=== PATIENT | male | born 1940 | race Caucasian/White ===

== ENCOUNTER 2018-11-14 12:28 | Inpatient (IN) | payer OTHER ==
[~2018-11-14] VITALS: Ht 172.7 cm; Wt 116.4 kg
--- NOTE | ~2018-11-14 | WRIGHTHP ---
[place], [place] PATIENT HISTORY AND PHYSICAL EXAM [id number] UNIT #: [id number] ROOM: DOCTOR: KENNA SUH MD BIRTHDATE: [birth year] DOS: CHIEF COMPLAINT: Syncope. HISTORY OF PRESENT ILLNESS: A 78-year-old patient presented to the office after he passed out at home in the kitchen. The patient completely passed out for a few seconds. It happened last night and the patient did not go to ER. He came to our office and in the office. EKG was done, which showed A-Fib with controlled rate. Orthostatics were mildly positive. He was recently started on lisinopril. His blood pressure dropped only 8 mmHg. At this time. Lisinopril is being continued. Also, he had supratherapeutic INR. He was on total Coumadin of 91 mg in a week, but it was decreased to 70 mg per week. I increased it to 80 mg per week. He will take Coumadin 10 mg daily except , on he will take 20 mg. The patient is denying any chest pain or shortness of breath at this time. The patient at this time will be admitted to the hospital. PAST MEDICAL HISTORY: 1. Atrial fibrillation for 3 years. 2. Essential hypertension. 3. Type 2 diabetes without long-term complications. 4. B12 deficiency. 5. Hyperlipidemia. 6. Depression. 7. History of asbestosis (as per ). PAST SURGICAL HISTORY: Bronchoscopy in the past. FAMILY HISTORY: Father and mother both . One son and two daughters, they are healthy. Dad had Alzheimer's disease. Otherwise, family history at this stage is noncontributory. SOCIAL HISTORY: He is a nonsmoker and nonalcoholic. No illicit drug use. CURRENT MEDICATIONS: 1. Vitamin B12 3000 mcg tablet daily. 2. Hydrochlorothiazide 25 mg daily. 3. Cartia XT 240 mg daily. 4. Metformin 1000 mg b.i.d. 5. Pioglitazone 30 mg daily. 6. Atorvastatin 80 mg daily. 7. Zoloft 100 mg daily. 8. Lisinopril 10 mg daily. 9. Coumadin 10 mg daily except , on he takes 2 pills. DRUG ALLERGIES: No known drug allergies. REVIEW OF SYSTEMS: A 10-point review of systems is unremarkable except for as in the history of presenting illness. [place], [place] PATIENT HISTORY AND PHYSICAL EXAM NAME: KIMBERLY DEE UNIT #: [id number] ROOM: DOCTOR: KENNA SUH MD BIRTHDATE: [birth year] PHYSICAL EXAMINATION: VITAL SIGNS: His temperature is 97.8, heart rate 71, blood pressure is 130/72. His BMI is 39, oxygen saturation 96%. HEAD: Normocephalic, atraumatic. EYES: Pupils equal, round, react to light. Extraocular movements are intact. EAR, NOSE AND THROAT: No discharge noted. NECK: No JVD. No lymphadenopathy. No thyromegaly. CHEST: Clinically clear to auscultation bilaterally. HEART: Irregularly irregular. LUNGS: Clear to auscultation bilaterally. ABDOMEN: Soft, nontender. Bowel sounds are present. EXTREMITIES: The patient does have 1-2+ pedal edema noted. NEUROLOGIC: No focal deficit noted at this point. LABORATORY DATA: His INR was 1.6. ASSESSMENT: At this time: 1. Syncope and collapse. We will check CMP, CBC with diff, vitamin B12 and folic acid, TSH, and free T4. Then, we will get CAT scan of the head without contrast, then carotid duplex, then echocardiogram. 2. Atrial fibrillation. INR is subtherapeutic at 1.6. Extra Coumadin dose given today. EKG also showed atrial fibrillation with controlled rate. 3. Subtherapeutic INR. 4. Essential hypertension. Blood pressure is well controlled. 5. Type 2 diabetes without any complications. 6. Pure hyperlipidemia. 7. Hypercholesterolemia. 8. Depression. 9. History of asbestosis. 10. Mild orthostatic hypotension. PLAN OF CARE: 1. Continue all home meds. 2. Lab tests as dictated above. 3. Dr. Daugherty will be covering over the weekend starting tomorrow. Dr. Daugherty will follow the patient in the morning. [place], [place] PATIENT HISTORY AND PHYSICAL EXAM NAME: KIMBERLY DEE UNIT #: [id number] ROOM: DOCTOR: KENNA SUH MD BIRTHDATE: [birth year] KENNA SUH MD CM:HISPHYS:PATIENT HISTORY AND PHYSICAL EXAMINATION 1221 1301 KENNA SUH MD 11/14/18 1302 interface
--- NOTE | ~2018-11-14 | EKG ---
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
--- NOTE | ~2018-11-14 | PR ---
[place], [place] PROGRESS NOTE NAME: KIMBERLY DEE UNIT #: [id number] ROOM: 522 DOCTOR: GURINDER HONG,SOHA BIRTHDATE: [birth year] DOS: 11/16/2018 CARDIOLOGY PROGRESS NOTE REASON FOR VISIT: The patient with syncope and atrial fibrillation and bradyarrhythmia. HISTORY OF PRESENT ILLNESS: The patient is feeling better. Denies any dizziness. He is ambulating. Denies any palpitation. No chest pain or shortness of breath. No PND, no orthopnea. No nausea, vomiting, diarrhea. No dizziness. REVIEW OF SYSTEMS: Review of the 8 systems negative except as mentioned above. PHYSICAL EXAMINATION: VITAL SIGNS: Blood pressure 112/70, pulse 60, respiratory rate 18, weight 116.7 kg, BMI 39. RHYTHM STRIPS: The patient in atrial fibrillation with occasional rates into high 40s and low 50s. GENERAL: Alert, comfortable, in no acute distress. HEAD AND NECK: Supple. No distended neck veins, no carotid bruit. CHEST: Symmetrical, nontender. LUNGS: Clear to auscultation bilaterally. HEART: Irregularly irregular, grade 1/6 systolic murmur. ABDOMEN: Obese, nontender. Bowel sounds normal. EXTREMITIES: Showed no edema. Distal pulses palpable. SKIN: Warm and dry. No cyanosis, no clubbing. RECTAL: Deferred. GENITOURINARY: Deferred. NEUROLOGIC: The patient is alert with no focal neurologic deficit. MEDICATIONS AND LABORATORY DATA: Reveal a hemoglobin 13.2. Chemistry unremarkable. INR 1.8. IMPRESSION: 1. Syncope, possible hypotension versus bradycardia, no recurrence. 2. Chronic atrial fibrillation with occasional slow ventricular rate. 3. Hypertension. 4. Diabetes type 2. 5. Non-morbid obesity. 6. Right bundle branch block and left anterior fascicular block. RECOMMENDATIONS: The patient's blood pressures are borderline and heart rates also occasional bradycardia. I would discontinue his Cardizem and monitor his heart rate, blood pressures. Keep INR between 2-3. The patient can be discharged home and he will get outpatient Holter monitor next week and then follow up with [facility] and if the patient noted to [place], [place] PROGRESS NOTE NAME: KIMBERLY DEE UNIT #: [id number] ROOM: 522 DOCTOR: GURINDER HONG,SOHA BIRTHDATE: [birth year] have significant bradycardia and symptomatic with heart rate less than 40, then he will need a permanent pacemaker. Above recommendations discussed with the patient and all questions were answered. There is no family at bedside at the time of my examination. SOHA FAIRCHILD MD CM:PNTRANS [id number] SOHA FAIRCHILD MD 11/16/18 2354 interface
--- NOTE | ~2018-11-14 | DS ---
[place], [place] DISCHARGE SUMMARY NAME: KIMBERLY DEE [facility] #: [id number] UNIT #: [id number] ROOM: 522 DOCTOR: ROMA SIMONS MD BIRTHDATE: [birth year] DOS: A 78-year-old who was admitted to hospital as he has passing out attack, possibly due to his postural hypotension and the patient is feeling completely normal now. He is able to ambulate well without any problem and no dizziness, no chest pain, no difficulty breathing, no nausea, no vomiting, no blood in his stool. No urinary complaint. He feels perfectly alright. FINAL DIAGNOSES: Syncopal attack with collapse, atrial fibrillation, essential hypertension, postural hypotension, type 2 diabetes mellitus without complication, hyperlipidemia, hypercholesterolemia and depression, history of asbestosis, mild. The patient's CBC showed on admission, white count 9100, hemoglobin 13.2, hematocrit 39.8. Other values are fairly good. Protime was 16.4. Comprehensive metabolic profile showed glucose 119, magnesium 2.2. Other values are normal. Troponin level was normal. Chest x-ray showed minimal left lobe discoid atelectasis versus infiltrate. CT of the chest showed no acute intracranial process identified at the time of this examination in the absence of the ____, MRI maybe helpful. Repeat troponin level 2 times was normal. MRI of the brain was done, which showed chronic ischemic white matter changes without acute intracranial abnormality. Echocardiogram showed the left ventricle normal in size. There is normal left ventricular systolic wall motion, mild concentric left ventricular hypertrophy. The ejection fraction of 60-65%, right ventricle was normal. Atria were normal, aortic wall was normal. No regurgitation. Mitral valve was normal. Tricuspid valve was trace of tricuspid regurgitation. Pulmonic was normal. Great vessels were normal with no pericardial effusion. Ultrasound of the carotid arteries showed less than 50% stenosis in bilateral internal carotid arteries. Protime on the day of discharge 18.2, INR is 17., PHYSICAL EXAMINATION: VITAL SIGNS: Blood pressure is 133/69, pulse 60, respirations 20, temperature 98.6. CHEST: Clear. HEART: Regular. ABDOMEN: Soft. No postural hypotension. The patient will be discharged and all his home medication except the Cardizem, which causes him postural hypotension. The patient is also advised to lose some weight and stay physically active. I will see him in the office next week. [place], [place] DISCHARGE SUMMARY NAME: KIMBERLY DEE UNIT #: [id number] ROOM: 522 DOCTOR: ROMA SIMONS MD BIRTHDATE: [birth year] ROMA SIMONS MD CM:DISCHARG 4 [id number] ROMA SIMONS MD 11/17/18 2205 interface
--- NOTE | ~2018-11-14 | PR ---
[place], [place] PROGRESS NOTE NAME: KIMBERLY DEE [facility] #: [id number] UNIT #: [id number] ROOM: 522 DOCTOR: ROMA SIMONS MD BIRTHDATE: [birth year] DOS: 11/16/2018 SUBJECTIVE: The patient has been admitted to the hospital with history of passing out at his home. It was only for a short time and after that the patient got up. He denies any chest pain. No difficulty breathing, no nausea, no vomiting. He is lying comfortably in the bed without any problem and can move all the 4 limbs without any problem. Conscious, alert, and oriented. The patient has history of atrial fibrillation in the past and has hypertension, type 2 diabetes, B12 deficiency, hyperlipidemia, depression, history of asbestosis. OBJECTIVE: GENERAL: On examination, the patient is conscious, alert and oriented. VITAL SIGNS: Blood pressure is 141/64, pulse 61, respirations 20, temperature 97.6. HEART: Seems to be regular. LUNGS: Clear. ABDOMEN: Soft. NEUROLOGIC: No neurological deficit observed. LABORATORY DATA: CBC showed white count 8600, hemoglobin 12.8, hematocrit 38.7. Comprehensive metabolic profile showed glucose of 133, calcium 8.4, alkaline phosphatase of 44. All other values are normal. Thyroid profile is normal. Protime is 17.2. Vitamin B12 is greater than 2000. Urine culture showed heavy growth of gram-negative bacteria. MRI of the head shows chronic ischemic white matter changes without acute intracranial abnormality. EKG shows atrial fibrillation with slow ventricular rate. Ultrasound of the carotid artery shows less than 50% stenosis of bilateral internal carotid arteries. Echocardiogram, left ventricle is normal in size. There is normal left ventricular segmental wall motion, mild concentric left ventricular hypertrophy, left ventricular systolic function is normal. Ejection fraction is 65%. Right ventricle is of normal size. Left atria are normal. Aortic valve is essentially normal. Mitral valve, there is no mitral valve regurgitation. Tricuspid valve is with trace tricuspid regurgitation. Pulmonary valve normal. Great vessel normal. No pericardial effusion. Basic metabolic profile today showed glucose 129, other values are normal. The patient is conscious, alert and oriented and without any problem. PLAN OF TREATMENT: We will continue with the present medical treatment. The patient is encouraged to actively ambulate and see how he is doing. The patient is already taking antibiotic for possible urinary tract infection. [place], [place] PROGRESS NOTE NAME: KIMBERLY DEE UNIT #: [id number] ROOM: 522 DOCTOR: ROMA SIMONS MD BIRTHDATE: [birth year] ROMA SIMONS MD CM:PNTRANS [id number] ROMA SIMONS MD 11/16/18 1417 interface
--- NOTE | ~2018-11-14 | CON ---
[place], [place] REPORT OF CONSULTATION [id number] UN[facility] #: [id number] ROOM: 522 DOCTOR: SOHA FAIRCHILD MD BIRTHDATE: [birth year] DOS: 11/15/2018 CARDIOLOGY CONSULTATION REASON FOR CONSULTATION: The patient has syncope and some bradyarrhythmia with atrial fibrillation. HISTORY OF PRESENT ILLNESS: The patient is a 78-year-old with history of paroxysmal atrial fibrillation, hypertension, diabetes, and morbid obesity, was admitted for syncope. Apparently at home in the late evening, the patient went to the kitchen and did some chores and then later on he "passed out" for about a minute. There was no head injury, but he denied any chest pain, shortness of breath, diaphoresis or dizziness prior to this episode. This is the first time he had, but he did not seek any medical attention. Next day, he went to Dr. Cadena's office and he was admitted to the hospital for further evaluation. The patient was slightly orthostatic in the office. He was on Coumadin for his atrial fibrillation, but denies any chest pain or shortness of breath, no palpitations. No dizziness, no nausea or vomiting. No fever and chills. No cough, no hemoptysis. No bladder or bowel symptoms, no genitourinary symptoms. The patient did complain of some fatigue for the past few weeks. REVIEW OF SYSTEMS: Review of 10-systems negative except as described above. The patient's only complaint is some fatigue and tiredness for a few weeks. PAST MEDICAL HISTORY: 1. Paroxysmal atrial fibrillation. 2. Hypertension. 3. Diabetes type 2. 4. Dyslipidemia. 5. Morbid obesity. 6. History of asbestosis. PAST SURGICAL HISTORY: The patient has history of a bronchoscopy. FAMILY HISTORY: Father and mother both . Dad had dementia. SOCIAL HISTORY: The patient does not smoke, does not drink, does not use illicit drugs. ALLERGIES: Reviewed. HOME MEDICATIONS: Reviewed. PHYSICAL EXAMINATION: VITAL SIGNS: Blood pressure 142/78, pulse 61, respiratory rate 20, weight 116 kg, BMI 39. GENERAL: Alert, comfortable, in no acute distress. HEAD AND NECK: Neck supple. No distended neck veins, no carotid bruit. CHEST: Symmetrical, nontender. LUNGS: Clear to auscultation bilaterally. [place], [place] REPORT OF CONSULTATION NAME: KIMBERLY DEE UNIT #: [id number] ROOM: 522 DOCTOR: GURINDER HONG,SOHA BIRTHDATE: [birth year] HEART: Irregularly irregular, no S3, no palpable thrills. No significant murmurs. ABDOMEN: Obese, nontender. Bowel sounds normal. EXTREMITIES: Showed no edema. Distal pulses palpable. SKIN: Warm and dry. No cyanosis, no clubbing. RECTAL: Deferred. GENITOURINARY: Deferred. NEUROLOGIC: The patient is alert with no focal neurologic deficit. MUSCULOSKELETAL: No joint tenderness or swelling. PSYCHIATRIC: The patient is alert with good mood and affect. DIAGNOSTIC TESTS: EKG, CBC, chemistry reviewed. EKG showed atrial fibrillation with controlled ventricular rate, occasional bradycardia into high 40s. TSH normal. CBC, chemistry unremarkable. DIAGNOSTIC IMPRESSION: 1. Syncope, etiology unknown, possible orthostasis versus bradyarrhythmia. No recurrence. Check orthostatic blood pressures. 2. Permanent atrial fibrillation with occasional bradyarrhythmia. The patient was on Coumadin. INR 1.6 today. 3. Hypertension. 4. Diabetes type 2. 5. Dyslipidemia. 6. Morbid obesity. 7. Sleep apnea, the patient uses CPAP. 8. Right bundle-branch block and left anterior fascicular block. RECOMMENDATIONS: 1. Decrease Cardizem dose to 120 mg for his occasional bradyarrhythmia and watch heart rate and blood pressure. 2. Outpatient Holter monitor for evaluation of his bradycardia. 3. His 2D echo is reviewed and is unremarkable and showed normal LV function. 4. Outpatient stress test later on due to his risk factors. 5. The patient's blood pressure and heart rate are stable and if he is asymptomatic and ambulating well, he can be discharged home later today and follow with [facility] in 1-2 weeks. 6. The above recommendation discussed with the patient and his and all questions answered. 7. If the patient is continued to be noted to have a bradycardia on Holter monitor, then we need to discontinue Cardizem and if he is continuing to have symptomatic bradyarrhythmia, then he will need permanent pacemaker. 8. Risk factor modification for diet, exercise, weight loss discussed. 9. Keep his INR around between 2-[address] Cadena manages his protimes. [place], [place] REPORT OF CONSULTATION NAME: KIMBERLY DEE UNIT #: [id number] ROOM: 522 DOCTOR: GURINDER HONG,SOHA BIRTHDATE: [birth year] SOHA FAIRCHILD MD CM:CONSTR:REPORT OF CONSULTATION 40 11/16/181930 interface
--- NOTE | ~2018-11-14 | EKG ---
[place], [place] ELECTROCARDIOGRAM REPORT NAME: KIMBERLY DEE UNIT #: [id number] ROOM: 522 DOCTOR: TERESA DRAFT REPORT BIRTHDATE: [birth year] [facility] Test Date: 2018-11-14 Test Time: 19:25:38 Pat Name: KIMBERLY DEE Department: Room: 522 Gender: M Saturator: : 1940 Requested By: NGOC OCHOA Order Number: [id number] Reading MD: Jeri Young Measurements Intervals [place] Rate: 49 P: [place]: QRS: -44 QRSD: 144 T: 5 QT: 482 QTc: 436 Interpretive Statements Atrial fibrillation with slow ventricular rates RBBB and LAFB Probable lateral infarct, old Electronically Signed On 11-15-2018 12:48:09 PDT by Jeri Young CM:EKGRPT:ELECTROCARDIOGRAM REPORT 24 1248 NGOC MOORE DRAFT REPORT NGOC OCHOA MD
--- NOTE | ~2018-11-14 | EKG ---
[place], [place] ELECTROCARDIOGRAM REPORT NAME: KIMBERLY DEE UNIT #: [id number] ROOM: 522 DOCTOR: TERESA DRAFT REPORT BIRTHDATE: [birth year] 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
[~2018-11-14 12:28] MED LIST: AMARYL4 MG PO; AMOXICILLIN500 M3 PO; AMOXICILLIN500 MG PO; ASPIRIN LOW STR81 M1 PO; ATENOLOL25 MG PO; CRESTOR20 MG PO; Coumadin10 MG PO; DILTIAZEM HYDR180 M2 PO; FISH OIL; HCTZ; HYDR25T PO; LIPITOR80 MG PO; MEDROL DOSEPAK4 MG PO; METFORMIN1000 MG PO; NIACIN; NIACIN50 M1 PO; NORCO 5-325 TA1 EACH PO; NORVASC10 MG PO; NOVAPLUS V0.09 MG/Ac INH; ZOLOFT100 MG PO; ZOLOFT50 MG PO
[2018-11-14 12:31] VITALS: BP 154/64
[2018-11-14 12:57] VITALS: BP 146/48
[2018-11-14 13:09] LABS: BASO # 0.1 10*3/uL (0.0-0.1); BASO % 0.5 % (0.0-1.0); EOS # 0.1 10*3/uL (0.0-0.4); EOS % 1.5 % (1.0-4.0); HEMATOCRIT 39.8 % (42.0-52.0); HEMOGLOBIN 13.2 g/dl (14.0-18.0); LYMPH # 1.6 10*3/uL (1.3-4.4); LYMPH % 17.8 % (27.0-41.0); MEAN CORPUSCULAR HGB 31.5 pg (27.0-31.0); MEAN CORPUSCULAR HGB CONC 33.2 g/dl (33.0-37.0); MONO # 0.9 10*3/uL (0.1-1.0); MONO % 9.3 % (3.0-9.0); NEUT # 6.4 10*3/uL (2.3-7.9); NEUT % 70.2 % (47.0-73.0); PLATELET COUNT AUTOMATED 125 10*3/uL (130-400); RED BLOOD COUNT 4.19 10*6/uL (4.50-5.90); RED CELL DISTRI WIDTH 14.3 % (0-14.5); WHITE BLOOD COUNT 9.1 10*3/uL (4.8-10.8)
[2018-11-14 13:21] LABS: ACT PARTIAL THROMBO TIME 27.7 SECONDS (20.0-32.1); INTERNATIONAL NORM RATIO 1.5 (2.0-3.5)
[2018-11-14 13:26] LABS: ALBUMIN 3.8 gm/dl (3.1-4.5); ALKALINE PHOSPHATASE 46 U/L (45-117); BUN 15 mg/dl (7-24); CHLORIDE 104 mmol/L (98-107); CREATININE 1.07 mg/dL (0.70-1.30); POTASSIUM 4.3 mmol/L (3.5-5.1); SGOT/AST 19 IU/L (3-35); SGPT/ALT 27 U/L (12-78); SODIUM 139 mmol/L (136-145); TOTAL PROTEIN 7.1 gm/dL (6.4-8.2)
[2018-11-14 13:27] LABS: TROPONIN I < 0.015 ng/ml (<0.045)
--- NOTE | 2018-11-14 13:37 | NUR ---
THE PT WAS ORDERED A ADA RUNNING TRAY
[2018-11-14 14:21] LABS: BILIRUBIN NEGATIVE (NEGATIVE); BLOOD 2+ (NEGATIVE); CLARITY CLEAR (CLEAR); COLOR YELLOW (YELLOW); GLUCOSE NEGATIVE (NEGATIVE); KETONE NEGATIVE (NEGATIVE); LEUKO ESTERASE 1+ (NEGATIVE); NITRITE NEGATIVE (NEGATIVE); PH 7.5 (5.0-9.0)
[2018-11-14 14:26] LABS: BACTERIA TRACE; EPITHELIAL CELLS 0-2; RBC 21-30 rbc/hpf (0-2); WBC 51-100 wbc/hpf (0-5)
[2018-11-14 14:27] LABS: YEAST TRACE
[2018-11-14 14:50] VITALS: BP 132/68
--- NOTE | 2018-11-14 14:50 | NUR ---
A 78, admitted to , under the services of KENNA Romano MD with a diagnosis of SYNCOPE. Chief complaint is PASSING OUT. Patient arrived via bed from ER. Monitor applied. Initial assessment completed. Vital signs taken and recorded. KENNA ROMANO MD notified of admission to the unit. Orders received. See assessment for past medical history, medications and allergies. Patient and/or family oriented to unit. [facility] [[email or web address] visitation policy reviewed. Clothing/patient valuable form completed. VIC GOLDSMITH
[2018-11-14] MEDS ORDERED: Coumadin10 MG PO (15:48)
[2018-11-14] MEDS ORDERED: CARTIA XT240 MG PO (15:48)
[2018-11-14] MEDS ORDERED: ACTOS30 M1 PO (15:49)
[2018-11-14] MEDS ORDERED: PRINIVIL10 MG PO (15:49)
--- NOTE | 2018-11-14 16:20 | NUR ---
DR SUH NOTIFIED FOR ORDERS. ORDERS ENTERED PER PHYSICIAN REQUEST AND PER PAPER THAT WAS SENT WITH FAMILY FROM HIS OFFICE. PAPER WILL BE PUT IN PATIENT'S CHART.
[2018-11-15] VITALS: BP 148/62
--- NOTE | 2018-11-15 03:50 | NUR ---
24 HR chart check completed.
[2018-11-15 06:54] LABS: BASO # 0.1 10*3/uL (0.0-0.1); BASO % 0.6 % (0.0-1.0); EOS # 0.2 10*3/uL (0.0-0.4); EOS % 2.2 % (1.0-4.0); HEMATOCRIT 38.7 % (42.0-52.0); HEMOGLOBIN 12.8 g/dl (14.0-18.0); LYMPH # 2.2 10*3/uL (1.3-4.4); LYMPH % 25.9 % (27.0-41.0); MEAN CELL VOLUME 95.6 fl (80.0-94.0); MEAN CORPUSCULAR HGB 31.6 pg (27.0-31.0); MEAN CORPUSCULAR HGB CONC 33.1 g/dl (33.0-37.0); MEAN PLATELET VOLUME 12.4 fl (9.6-12.3); MONO # 0.9 10*3/uL (0.1-1.0); NEUT # 5.2 10*3/uL (2.3-7.9); NEUT % 60.6 % (47.0-73.0); PLATELET COUNT AUTOMATED 128 10*3/uL (130-400); RED BLOOD COUNT 4.05 10*6/uL (4.50-5.90); RED CELL DISTRI WIDTH 14.3 % (0-14.5); WHITE BLOOD COUNT 8.6 10*3/uL (4.8-10.8)
[2018-11-15 07:05] LABS: ALBUMIN 3.4 gm/dl (3.1-4.5); ALKALINE PHOSPHATASE 44 U/L (45-117); BUN 15 mg/dl (7-24); CHLORIDE 105 mmol/L (98-107); CREATININE 0.97 mg/dL (0.70-1.30); FREE T4 0.95 ng/dl (0.76-1.46); SGOT/AST 14 IU/L (3-35); SGPT/ALT 26 U/L (12-78); SODIUM 140 mmol/L (136-145); TOTAL PROTEIN 6.6 gm/dL (6.4-8.2)
[2018-11-15 07:29] LABS: INTERNATIONAL NORM RATIO 1.6 (2.0-3.5)
--- NOTE | 2018-11-15 09:00 | NUR ---
Rn New Graduate in to talk to patient. Patient states lives at home with his . There are 0 steps in the home. Physician: Dr. Jace Cadena [facility]: none Patient's level of ADLs: INDEPENDENT Patient has working utilities: yes DME: c-pap Follow-up physician's appointment after d/c: he prefers to make his own follow up appt after discharge Does patient want to access PORTAL?: no Discharge plan discussed with patient. He lives at home with his . He is independent in his ADLs and ambulation. Discussed home health care services and he denies any home needs at this time. When medically stable he will be discharged to home. GHANSHYAM ARECHIGA
--- NOTE | 2018-11-15 09:30 | NUR ---
DR SUH NOTIFIED THAT PT HAD BRADYCARDIA WITH A HEART RATE IN 40'S THROUGHOUT THE PREVIOUS NIGHT. HEART RATE CURRENTLY LOW 50S. PT ASYMPTOMATIC AT THIS TIME. BLOOD PRESSURE WNL. NEW ORDERS RECEIVED TO HOLD CARDIZEM AT THIS TIME AND TO CONSULT DR GARCIA FOR BRADYCARDIA AND SYNCOPAL EPISODE. WILL NOTIFY PHYSICIAN OF CONSULT. WILL NOTIFY PT.
[2018-11-15 09:42] VITALS: BP 142/78
--- NOTE | 2018-11-15 10:25 | NUR ---
DR GARCIA OFFICE CALLED REGARDING CONSULT. ALL APPROPRIATE INFORMATION GIVEN TO ABSORPTION PLANT OPERATOR.
[2018-11-15 12:00] VITALS: BP 135/62
--- NOTE | 2018-11-15 12:38 | NUR ---
Nutritional Support Services Note: Ht.5'8 Wt.257# IBW 144-164. bmi 38.9. 1800cal diet as ordered. Diet as ordered is appropriate at this time. No other nutrition intervention needed at this time. Will follow as needed. Zoe Cardona Rdn Ld
[2018-11-15 16:00] VITALS: BP 129/52
[2018-11-15 20:00] VITALS: BP 116/53
[2018-11-16] VITALS: BP 141/64
--- NOTE | 2018-11-16 01:47 | NUR ---
24 HR chart check completed.
--- NOTE | 2018-11-16 03:59 | NUR ---
SLEEPING NO ACUTE DISTRESS NOTED. HOME CPAP IN USE.
[2018-11-16 06:28] LABS: BASO % 0.5 % (0.0-1.0); EOS # 0.2 10*3/uL (0.0-0.4); EOS % 2.8 % (1.0-4.0); HEMATOCRIT 39.9 % (42.0-52.0); HEMOGLOBIN 13.2 g/dl (14.0-18.0); LYMPH # 2.1 10*3/uL (1.3-4.4); MEAN CORPUSCULAR HGB 31.4 pg (27.0-31.0); MEAN CORPUSCULAR HGB CONC 33.1 g/dl (33.0-37.0); MEAN PLATELET VOLUME 11.8 fl (9.6-12.3); MONO # 0.8 10*3/uL (0.1-1.0); MONO % 9.6 % (3.0-9.0); NEUT % 60.4 % (47.0-73.0); PLATELET COUNT AUTOMATED 128 10*3/uL (130-400); RED CELL DISTRI WIDTH 14.3 % (0-14.5); WHITE BLOOD COUNT 8.2 10*3/uL (4.8-10.8)
[2018-11-16 06:47] LABS: INTERNATIONAL NORM RATIO 1.8 (2.0-3.5)
[2018-11-16 06:58] LABS: BUN 15 mg/dl (7-24); CHLORIDE 105 mmol/L (98-107); CREATININE 0.91 mg/dL (0.70-1.30); POTASSIUM 3.9 mmol/L (3.5-5.1); SODIUM 140 mmol/L (136-145)
[2018-11-16 08:35] VITALS: BP 112/70
--- NOTE | 2018-11-16 08:40 | NUR ---
STEVEN HELD PER NURSING JUDGEMENT, PULSE RATE LOW 50'S. WILL MONITOR
[2018-11-16 12:00] VITALS: BP 114/44
--- NOTE | 2018-11-16 13:32 | NUR ---
PATIENT HEART HEART LOW 50'S PER PAPER COATING MACHINE OPERATOR
[2018-11-16 16:00] VITALS: BP 142/70
[2018-11-16 20:00] VITALS: BP 129/53
--- NOTE | 2018-11-16 20:16 | NUR ---
24 HR chart check completed.
--- NOTE | 2018-11-16 21:00 | NUR ---
RESTING IN BED WITH NO DISTRESS NOTED. RESPIRATIONS EASY. LUNGS DIMINISHED, CLEAR. PULSE OX 97% RA. CALL LIGHT WITHIN REACH. NO VOICED COMPLAINTS
[2018-11-17] VITALS: BP 133/69
--- NOTE | 2018-11-17 | NUR ---
SLEEPING. NO DISTRESS NOTED. RESPIRATIONS EASY. VSS. CALL LIGHT WITHIN REACH
--- NOTE | 2018-11-17 02:20 | NUR ---
SLEEPING. NO DISTRESS NOTED. RESPIRATIONS EASY. C-PAP IN USE. CALL LIGHT WITHIN REACH
--- NOTE | 2018-11-17 06:00 | NUR ---
SLEPT THROUGHOUT NIGHT WITH NO DISTRESS NOTED. RESPIRATIONS EASY. C-PAP IN USE. CALL LIGHT WITHIN REACH. NO VOICED COMPLAINTS THIS SHIFT
[2018-11-17 08:00] VITALS: BP 132/60
[2018-11-17 08:10] LABS: INTERNATIONAL NORM RATIO 1.7 (2.0-3.5)
--- NOTE | 2018-11-17 10:03 | NUR ---
PATIENT TO BE DISCHARGED TO HOME PER DR. SIMONS. COUMADIN NEEDS ADDRESSED WHEN F/U WITH DR. SIMONS. PATIENT IS AWARE OF INR.
--- NOTE | 2018-11-17 10:49 | NUR ---
PATIENT DISCHARGED TO HOME.
== END 2018-11-17 10:45 | disposition home or self-care (01) | DRG 312 ==
LOC: ED 12:28 → EDHOLD 14:16 → 5E 14:16
PROVIDERS: Emergency Medicine; ADMIT Internal Medicine
PROC: 5A09357 Assistance with Respiratory Ventilation, Less than 24 Consecutive Hours, Continuous Positive Airway Pressure (ICD-10-PCS; principal; 2018-11-17)
DX: I95.1 Orthostatic hypotension (principal); I45.2 Bifascicular block; J98.11 Atelectasis; E11.9 Type 2 diabetes mellitus without complications; E66.01 Morbid (severe) obesity due to excess calories; I48.0 Paroxysmal atrial fibrillation; I49.8 Other specified cardiac arrhythmias; I11.9 Hypertensive heart disease without heart failure; I36.1 Nonrheumatic tricuspid (valve) insufficiency; I65.23 Occlusion and stenosis of bilateral carotid arteries; G47.30 Sleep apnea, unspecified; E78.5 Hyperlipidemia, unspecified; E78.00 Pure hypercholesterolemia, unspecified; F32.9 Major depressive disorder, single episode, unspecified; J44.9 Chronic obstructive pulmonary disease, unspecified; Z87.442 Personal history of urinary calculi; Z82.3 Family history of stroke; Z79.01 Long term (current) use of anticoagulants; Z80.8 Family history of malignant neoplasm of other organs or systems; Z82.0 Family history of epilepsy and other diseases of the nervous system; Z68.39 Body mass index [BMI] 39.0-39.9, adult

== ENCOUNTER → 2018-11-22 | Outpatient (CLI) | payer OTHER ==
[~2018-11-22] MED LIST changes: +ACTOS30 M1 PO; +CARTIA XT240 MG PO; +PRINIVIL10 MG PO
--- NOTE | ~2018-11-22 | HM ---
[place], [place] HOLTER MONITOR REPORT NAME: KIMBERLY DEE UNIT #: [id number] ROOM: DOCTOR: KENNA SUH MD BIRTHDATE: [birth year] DOS: This is a 48-hour Holter monitor. NARRATIVE SUMMARY: Average heart rate was 60 beats per minute. Minimum heart rate was 41 beats per minute. Maximum heart rate was 90 beats per minute. Ventricular ectopic activity consisted of 40 beats of which 2 were couplets, 31 were single PVCs and 6 were single ventricular ectopics, 1 was in late. The patient's rhythm included 3 minutes 46 seconds of bradycardia. The slowest single episode of bradycardia was lasted about 1 minute with minimum heart rate of 44 beats per minute. The patient had 3 episodes of atrial fibrillation with total time of 47 hours and 51 minutes, representing 99.8% of the total beats. The episode of atrial fibrillation with fastest ventricular response lasted about 9 hours and 27 minutes with maximum heart rate of 103 beats per minute. The episode of atrial fibrillation with slowest ventricular response occurred lasted about 37 hours and minimum heart rate was 41 beats per minute. The episode of atrial fibrillation with longest duration was with about 93 beats per minute. IMPRESSION: 1. The patient has baseline rhythm, atrial fibrillation. 2. There was of at least 3 sinus pauses noted, which is an indication for possible permanent pacemaker. 3. The patient probably has chronotropic incompetence too, as the maximum heart rate was about 103. His minimum heart rate was around 41 beats per minute. 4. The patient will be referred to certified dietary manager. KENNA SUH MD CM:HOLTER:HOLTER MONITOR REPORT [id number] KENNA SUH MD
== END | disposition home or self-care (01) ==
LOC: CARD 10:00
DX: I48.91 Unspecified atrial fibrillation (principal); R00.1 Bradycardia, unspecified

== ENCOUNTER 2019-02-07 11:44 | Emergency (ER) | payer OTHER ==
[~2019-02-07] VITALS: Ht 152.4 cm; Wt 114.3 kg
[2019-02-07 12:39] LABS: BASO % 0.4 % (0.0-1.0); EOS # 0.1 10*3/uL (0.0-0.4); EOS % 1.5 % (1.0-4.0); HEMATOCRIT 35.4 % (42.0-52.0); HEMOGLOBIN 11.5 g/dl (14.0-18.0); LYMPH # 1.2 10*3/uL (1.3-4.4); LYMPH % 16.2 % (27.0-41.0); MEAN CELL VOLUME 96.5 fl (80.0-94.0); MEAN CORPUSCULAR HGB 31.3 pg (27.0-31.0); MEAN CORPUSCULAR HGB CONC 32.5 g/dl (33.0-37.0); MEAN PLATELET VOLUME 11.7 fl (9.6-12.3); MONO # 0.8 10*3/uL (0.1-1.0); MONO % 10.4 % (3.0-9.0); NEUT # 5.3 10*3/uL (2.3-7.9); NEUT % 70.8 % (47.0-73.0); PLATELET COUNT AUTOMATED 111 10*3/uL (130-400); RED BLOOD COUNT 3.67 10*6/uL (4.50-5.90); RED CELL DISTRI WIDTH 15.2 % (0-14.5); WHITE BLOOD COUNT 7.4 10*3/uL (4.8-10.8)
[2019-02-07 12:45] LABS: INTERNATIONAL NORM RATIO 3.5 (2.0-3.5)
[2019-02-07 12:55] LABS: ALBUMIN 3.4 gm/dl (3.1-4.5); BUN 12 mg/dl (7-24); CHLORIDE 103 mmol/L (98-107); CREATININE 0.97 mg/dL (0.70-1.30); POTASSIUM 4.2 mmol/L (3.5-5.1); SGOT/AST 17 IU/L (3-35); SGPT/ALT 26 U/L (12-78); SODIUM 138 mmol/L (136-145); TOTAL PROTEIN 6.6 gm/dL (6.4-8.2)
[2019-02-07 12:58] LABS: ALKALINE PHOSPHATASE 40 U/L (45-117)
== END 2019-02-07 15:47 | disposition home or self-care (01) ==
LOC: ED 11:44
PROVIDERS: Internal Medicine
DX: S89.91XA Unspecified injury of right lower leg, initial encounter (principal); I48.91 Unspecified atrial fibrillation; J44.9 Chronic obstructive pulmonary disease, unspecified; I10 Essential (primary) hypertension; E11.9 Type 2 diabetes mellitus without complications; Z86.718 Personal history of other venous thrombosis and embolism; Z79.01 Long term (current) use of anticoagulants; Z79.899 Other long term (current) drug therapy; Z87.442 Personal history of urinary calculi; W22.8XXA Striking against or struck by other objects, initial encounter; Y93.89 Activity, other specified; Y92.098 Other place in other non-institutional residence as the place of occurrence of the external cause; Y99.8 Other external cause status

== ENCOUNTER 2019-02-08 17:06 | Emergency (ER) | payer OTHER ==
[~2019-02-08] VITALS: Ht 172.7 cm; Wt 113.4 kg
== END 2019-02-08 19:05 | disposition home or self-care (01) ==
LOC: ED 17:06
DX: S01.112A Laceration without foreign body of left eyelid and periocular area, initial encounter (principal); I48.91 Unspecified atrial fibrillation; E11.9 Type 2 diabetes mellitus without complications; I10 Essential (primary) hypertension; Z87.442 Personal history of urinary calculi; Z79.899 Other long term (current) drug therapy; Z79.01 Long term (current) use of anticoagulants; W01.198A Fall on same level from slipping, tripping and stumbling with subsequent striking against other object, initial encounter; Y93.89 Activity, other specified; Y92.098 Other place in other non-institutional residence as the place of occurrence of the external cause; Y99.9 Unspecified external cause status

== ENCOUNTER 2019-02-12 07:57 | Inpatient (IN) | payer OTHER ==
[~2019-02-12] VITALS: Ht 173 cm; Wt 114.8 kg
--- NOTE | ~2019-02-12 | EKG ---
[place], [place] ELECTROCARDIOGRAM REPORT NAME: KIMBERLY DEE UNIT #: [id number] ROOM: 508 DOCTOR: TERESA DRAFT REPORT BIRTHDATE: [birth year] [facility] Test Date: 2019-02-14 Test Time: 09:49:39 Pat Name: KIMBERLY DEE Department: Room: 508 1 Gender: M Airset Caster: Bethany Ballard : 1940 Requested By: MO HENDRICKS Order Number: [id number] Reading MD: Mo Hendricks MD Measurements Intervals [place] Rate: 65 P: 72 ND: 176 QRS: -35 QRSD: 134 T: 5 QT: 442 QTc: 460 Interpretive Statements Atrial flutter with regular ventricular rate Right bundle branch block Compared to ECG 11/14/2018 19:25:38 Atrial fibrillation no longer present Left anterior fascicular block no longer present Myocardial infarct finding no longer present Electronically Signed On 02-16-2019 6:25:04 PDT by Mo Hendricks MD CM:EKGRPT:ELECTROCARDIOGRAM REPORT [id number] MO MOORE DRAFT REPORT MO HENDRICKS MD
--- NOTE | ~2019-02-12 | EKG ---
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: Bethany Ballard : 1940 Requested By: JOSE ROBERTO AUSTIN Order Number: [id number] Reading MD: Panfilo Conroy MD Measurements Intervals [place] Rate: 67 P: 241 RI: 333 QRS: -45 QRSD: 139 T: 7 QT: 443 QTc: 468 Interpretive Statements Atrial flutter Prolonged RI interval RBBB and LAFB Minimal ST elevation, lateral leads Baseline wander in lead(s) V1,V2 Compared to ECG 11/14/2018 19:25:38 ST (T wave) deviation now present Myocardial infarct finding no longer present Electronically Signed On 02-16-2019 6:23:30 PDT by Panfilo Conroy MD CM:EKGRPT:ELECTROCARDIOGRAM REPORT 1005 0623 JOSE ROBERTO SOTO DRAFT REPORT JOSE ROBERTO AUSTIN DO
--- NOTE | ~2019-02-12 | PR ---
[place], [place] PROGRESS NOTE NAME: [facility] DEE [id number] UNIT #: [id number] ROOM: 508 DOCTOR: HAI ALMARAZ MD BIRTHDATE: [birth year] DOS: SUBJECTIVE: A 79-year-old evaluated. The patient underwent permanent pacemaker yesterday. He is doing well. Pacer site appears to be okay. Denies any chest pain, shortness of breath, palpitation. Heart rate is about 70, atrial fibrillation. REVIEW OF SYSTEMS: A 6-8 systems reviewed as per HPI. PHYSICAL EXAMINATION: VITAL SIGNS: Blood pressure is 110/70, atrial fibrillation. NECK: Supple, no JVD. LUNGS: Diminished breath sounds. HEART: Sounds are regular. Pacer site appears to be healing quite well. LABORATORY DATA: Shows hemoglobin 11.5, hematocrit 35.1. Electrolytes are normal. Creatinine is 1.1. IMPRESSION: Atrial fibrillation, sick sinus syndrome, permanent pacemaker, history of syncope, arrhythmia, COPD exacerbation, hypertension, dyslipidemia. RECOMMENDATIONS: Continue on present medications as ordered. Restart anticoagulation. Monitor the heart rate and blood pressure closely. Continue the antibiotics as ordered. The patient is on lisinopril, hydrochlorothiazide, atorvastatin, metformin, and we will follow up. HAI ALMARAZ MD CM:PNTRANS [phone] HAI ALMARAZ MD 02/15/191850 interface
--- NOTE | ~2019-02-12 | CON ---
[place], [place] REPORT OF CONSULTATION NAME: KIMBERLY DEE UNIT #: [id number] ROOM: 508 DOCTOR: MO HENDRICKS MD BIRTHDATE: [birth year] DOS: 02/13/2019 HISTORY OF PRESENT ILLNESS: This is a 79-year-old -[place] gentleman with a history of type 2 diabetes mellitus, essential hypertension, sleep apnea, who has had atrial fibrillation for about 2-3 years. He also carries a diagnosis of COPD. He was admitted to the hospital in October of this year when he passed out. At that time, another hard metals engraver hand diagnosed bradyarrhythmia and he did have atrial fibrillation at that time. He has had some lightheadedness and a Holter monitor was done by Dr. Daniel Cadena and it demonstrated significant pauses. He has not had any PND, orthopnea, or swelling of the lower extremities except the right one, which has become somewhat swollen after an injury and he also bled and has ecchymosis in the back of the right leg. SOCIAL HISTORY: He does not smoke nor does he drink alcoholic beverages. HOME MEDICATIONS: Include warfarin 10 mg daily and 20 mg on , sertraline 100 mg daily, Actos 30 mg daily, multivitamins, metformin 1 g b.i.d., lisinopril 10 mg, vitamin D, cyanocobalamin 5000 units p.o., atorvastatin 80 mg daily. PHYSICAL EXAMINATION: GENERAL: This is a patient who is morbidly obese. He is alert, oriented. VITAL SIGNS: Pulse is 64 with irregularity. Blood pressure 137/68. NECK: JVP is normal, no bruit in the neck. HEART: There is no cardiomegaly, no murmurs are present. Excellent pedal pulses. EXTREMITIES: There is 1-2+ edema of the right leg below the knee. RESPIRATORY: Breath sounds are mildly diminished because of obesity, but no adventitious sounds are present. There is no rub. ABDOMEN: Large and supple. DIAGNOSTIC DATA: Holter monitor has shown significant pauses per Dr. Daniel Cadena. IMPRESSION: This patient has had syncope and has significant bradycardia. The patient, I believe, was assessed by the associate property manager, who had recommended a pacemaker. This was planned for today; however, the patient's INR was 4.0, which I was not informed about, therefore, the procedure is being deferred. The patient is being given small dose of vitamin K p.o. and INR will be done this evening and further treatment of high INR will depend on the result at that time. I have asked the nurse to give me a call. The procedure has been tentatively scheduled for tomorrow morning, i.e. 02/14/2019. I discussed the risks and benefits of the procedure including infection, bleeding, pneumothorax, pericardial tamponade with the patient, daughter and the . They understand and would like to proceed. I thank you for this consult. [place], [place] REPORT OF CONSULTATION NAME: KIMBERLY DEE UNIT #: [id number] ROOM: 508 DOCTOR: MO HENDRICKS MD BIRTHDATE: [birth year] MO HENDRICKS MD CM:CONSTR:REPORT OF CONSULTATION 0732 02/24/19 1050 interface
--- NOTE | ~2019-02-12 | O ---
[place], [place] OPERATIVE NOTE NAME: KIMBERLY DEE UNIT #: [id number] ROOM: 508 DOCTOR: MO HENDRICKS MD BIRTHDATE: [birth year] DOS: 02/14/2019 PROCEDURE: Implantation of a dual chamber pacemaker. PREOPERATIVE DIAGNOSES: Kun-tachy syndrome, atrial fibrillation/flutter and syncope. POSTOPERATIVE DIAGNOSES: Kun-tachy syndrome, atrial fibrillation/flutter and syncope. NARRATIVE: The procedure was performed in the operating room. Sedation was provided by Anesthesiology service. Left subclavian area was prepped and draped for a sterile approach. Lidocaine 1% was infiltrated locally and an 18-gauge Cook needle was used to cannulate the subclavian vein, which was accomplished on the third attempt. A J-guidewire was advanced into the right atrium. A 4 cm incision was made below and parallel to the left clavicle traversing the entry side of the J guidewire. A blunt dissection was performed and a pocket was created inferiorly and laterally and it was packed with gauze for hemostasis. A 9-Bhutanese peel-away sheath was then introduced into the subclavian vein followed by introduction of tined ventricular lead into the right atrium. A curved stylet was used to advance the lead into the pulmonary artery. A straight stylet was introduced and the tip of the lead was guided into the right ventricular apex. Measured data was satisfactory. A 7-Bhutanese peel-away sheath was then introduced over the J guidewire that was left behind and the wire was taken out and a screw in atrial lead was introduced into the right atrium, followed by introduction of a J curved stylet, which immediately guided the tip into the right atrial appendage and it was screwed in place and measured data was excellent. The sheath was removed. The length of the lead was adjusted and the sleeves on the leads were advanced to the entry side and tied in with 3-0 Ethibond. The 3-0 Ethibond suture was used to immobilize the leads to the floor of the pocket. The leads were then attached to the pacemaker generator and the pocket was irrigated with antibiotic solution. The pacemaker generator was then introduced into the pocket with the leads located posteriorly. A single 3-0 Ethibond suture was used to immobilize the generator. The subcutaneous tissue was closed with 3-0 chromic catgut in 2 layers. This resulted in excellent skin apposition. Dermabond was applied followed by a pressure dressing. BLOOD LOSS: None. GERIATRICS PHYSICIAN: None. COMPLICATIONS: None. SPECIMEN: None. The measured data was as follows: The right atrial lead detected a P-wave of 2.5 millivolts (these were flutter waves). Impedance was 8.9 ohms. The ventricular lead detected an R-wave of 9 millivolts. Threshold and impedance were normal. [place], [place] OPERATIVE NOTE NAME: KIMBERLY DEE UNIT #: [id number] ROOM: 8 DOCTOR: MO HENDRICKS MD BIRTHDATE: [birth year] The pacemaker generator was by [employer]tronic, model W3DR01, serial #[id number]. The atrial lead was by [employer]onic, model 5076-52, serial #[id number]. The ventricular lead, model #227578 and serial #[id number]. MO HENDRICKS MD CM:OPRECORD:OPERATIVE NOTE 0905 1058 KENNA HENDRICKS MD 02/24/19 1443 interface
[2019-02-12 08:28] VITALS: BP 147/58
[2019-02-12 08:40] VITALS: BP 147/58
--- NOTE | 2019-02-12 08:40 | NUR ---
A 79, admitted to , under the services of KENNA Romano MD with a diagnosis of ABNORMAL HOLTER MONITOR TEST, RIGHT LEG SWELLING. Chief complaint is . Patient arrived via stretcher from [place]. Monitor applied. Initial assessment completed. Vital signs taken and recorded. KENNA ROMANO MD notified of admission to the unit. Orders received. See assessment for past medical history, medications and allergies. Patient and/or family oriented to unit. [facility]. Clothing/patient valuable form completed. SARAN ARRIAZA
[2019-02-12] MEDS ORDERED: Coumadin10 MG PO (09:17)
[2019-02-12] MEDS ORDERED: VITAMIN B-125000 MC2 PO (09:17)
[2019-02-12] MEDS ORDERED: VITAMIN D31000 UNI1 PO (09:18)
[2019-02-12] MEDS ORDERED: MULTIVITAMINS1 EAC6 PO (09:19)
[2019-02-12 10:26] LABS: BASO % 0.4 % (0.0-1.0); EOS # 0.1 10*3/uL (0.0-0.4); EOS % 1.3 % (1.0-4.0); HEMATOCRIT 36.3 % (42.0-52.0); HEMOGLOBIN 12.1 g/dl (14.0-18.0); LYMPH # 1.7 10*3/uL (1.3-4.4); LYMPH % 19.1 % (27.0-41.0); MEAN CELL VOLUME 95.5 fl (80.0-94.0); MEAN CORPUSCULAR HGB 31.8 pg (27.0-31.0); MEAN CORPUSCULAR HGB CONC 33.3 g/dl (33.0-37.0); MEAN PLATELET VOLUME 11.2 fl (9.6-12.3); MONO # 1.1 10*3/uL (0.1-1.0); MONO % 11.8 % (3.0-9.0); NEUT # 5.9 10*3/uL (2.3-7.9); NEUT % 66.7 % (47.0-73.0); PLATELET COUNT AUTOMATED 148 10*3/uL (130-400); RED CELL DISTRI WIDTH 15.6 % (0-14.5); WHITE BLOOD COUNT 8.9 10*3/uL (4.8-10.8)
[2019-02-12 10:49] LABS: BILIRUBIN NEGATIVE (NEGATIVE); BLOOD 3+ (NEGATIVE); CLARITY SL CLOUDY (CLEAR); COLOR YELLOW (YELLOW); GLUCOSE NEGATIVE (NEGATIVE); KETONE NEGATIVE (NEGATIVE); LEUKO ESTERASE NEGATIVE (NEGATIVE); NITRITE NEGATIVE (NEGATIVE); SPECIFIC GRAVITY 1.015 (1.005-1.030); UROBILINOGEN 0.2 E.U./dl (0.2-1.0)
--- NOTE | 2019-02-12 10:51 | NUR ---
DR. HENDRICKS NOTIFIED OF CONSULT RE: PATIENT REQUIRES A PACEMAKER.
[2019-02-12 10:55] LABS: ALBUMIN 3.3 gm/dl (3.1-4.5); ALKALINE PHOSPHATASE 43 U/L (45-117); BUN 19 mg/dl (7-24); CHLORIDE 102 mmol/L (98-107); CREATININE 1.05 mg/dL (0.70-1.30); SGOT/AST 20 IU/L (3-35); SGPT/ALT 23 U/L (12-78); SODIUM 138 mmol/L (136-145); TOTAL PROTEIN 7.4 gm/dL (6.4-8.2)
[2019-02-12 11:00] LABS: RBC TNTC rbc/hpf (0-2)
[2019-02-12 11:01] LABS: BACTERIA 1+; MUCOUS TRACE
[2019-02-12 11:58] VITALS: BP 126/58
--- NOTE | 2019-02-12 14:44 | NUR ---
PHONED DR. SUH'S OFFICE RE: REQUESTING HOLTER MONITOR TEST WILL NEED TO BE FAXED TO DR. HENDRICKS. PER DR. SUH'S OFFICE STAFF, THE TEST IS FROM NOVEMBER, PATIENT SCHEDULED FOR PACEMAKER PLACEMENT IN FEBRUARY, BUT PATIENT HAVING INCREASING NUMBER OF ISSUES AT HOME, SO DR. SUH WANTED TO ADMIT THE PATIENT AND GET A CONSULT WITH DR. HENDRICKS TO SEE IF PACEMAKER COULD BE OBTAINED EARLIER THAN FEBRUARY. THE OFFICE WILL FAX THE INFO. TO [facility] SO THAT THIS CAN BE FAXED TO DR. HENDRICKS.
[2019-02-12 16:00] VITALS: BP 124/98
--- NOTE | 2019-02-12 17:44 | NUR ---
PER DR. HENDRICKS, PATIENT FOR PACEMAKER PLACEMENT AT 7AM TOMORROW.
[2019-02-12 20:00] VITALS: BP 136/61
--- NOTE | 2019-02-12 20:00 | NUR ---
24 HOUR CHART CHECK COMPLETE.
--- NOTE | 2019-02-12 21:30 | NUR ---
PT SURGERY PACKET COMPLETED AND ON CHART.
[2019-02-13] VITALS: BP 137/68
--- NOTE | 2019-02-13 04:10 | NUR ---
KIMBERLY DEE [id number] Please refer to the physician's history and physical for past medical history, comorbid conditions, and allergies. Diagnosis: ABNORMAL HOLTER MONITOR RT LEG EDEMA Aren Score: 21,LOW OR NO RISK WOUND DESCRIPTIONS: Wound Number: 1 Location of the wound: left orbit norma Type of wound: laceration Thickness: Partial Size: 0.2cm x 2.8cm x <0.1cm Tunneling: none Undermining: none Sinus Tract: none Presence of Exudate: none Amount: None Color: Red Odor: None Periwound Skin Appearance: Normal Wound edges: approximated with 5 sutures Pain (associated with wound): none at time of assessment How does patient state this happened? pt stated this happened last sunday when he loss his balance and hit the fireplace. he is to have the sutures removed on the 02/16/19 per nurse caring for patient Alysia RN Surface the patient is resting on: Isoflex SKIN PREVENTION RECOMMENDATION: 1. Pressure redistribution support surface as appropriate 2. Elevate heels 3. Remove boots/TEDS every shift and reapply 4. Head of bed 30 degrees as tolerated 5. Assess nutrition and hydration 6. Manage moisture 7. Avoid the use of containment devices while in bed 8. Use absorptive products on surfaces limit layers of linens on bed 9. Turn and reposition every 1-2 hours in bed and every 1 hour in chair as tolerated 10. Weight shifts every 15 minutes while up in chair 11. Offloading with pillows or device to keep heels elevated off bed 12. Monitor skin at least every shift 13. Inspect under medical devices twice a day WOUND TREATMENT RECOMMENDATIONS: Continue bactracin daily and please remove suture on 02/16/19 as stated from nurse caring for patient.
[2019-02-13 07:08] LABS: BASO # 0.1 10*3/uL (0.0-0.1); BASO % 0.6 % (0.0-1.0); EOS # 0.2 10*3/uL (0.0-0.4); HEMATOCRIT 37.5 % (42.0-52.0); HEMOGLOBIN 12.2 g/dl (14.0-18.0); LYMPH # 1.9 10*3/uL (1.3-4.4); LYMPH % 20.4 % (27.0-41.0); MEAN CELL VOLUME 96.2 fl (80.0-94.0); MEAN CORPUSCULAR HGB 31.3 pg (27.0-31.0); MEAN CORPUSCULAR HGB CONC 32.5 g/dl (33.0-37.0); MEAN PLATELET VOLUME 11.2 fl (9.6-12.3); NEUT # 5.9 10*3/uL (2.3-7.9); NEUT % 65.3 % (47.0-73.0); PLATELET COUNT AUTOMATED 173 10*3/uL (130-400); RED CELL DISTRI WIDTH 15.5 % (0-14.5); WHITE BLOOD COUNT 9.1 10*3/uL (4.8-10.8)
--- NOTE | 2019-02-13 07:17 | NUR ---
DR. HENDRICKS SPOKE TO PATIENT AND FAMILY. SURGERY CANCELLED UNTIL 02/14 AT 0730 DUE TO INCREASED INR. PT. TRANSPORTED TO [facility] VIA BED.
[2019-02-13 07:24] LABS: INTERNATIONAL NORM RATIO 2.6 (2.0-3.5)
[2019-02-13 07:26] LABS: BUN 21 mg/dl (7-24); CHLORIDE 101 mmol/L (98-107); PHOSPHOROUS 3.2 mg/dL (2.5-4.9); POTASSIUM 4.2 mmol/L (3.5-5.1); SODIUM 137 mmol/L (136-145)
--- NOTE | 2019-02-13 07:30 | NUR ---
TALKED WITH REGARDING CANCELLING OF SURGERY DUE TO INR LEVEL. NEW ORDERS RECEIVED TO GIVE VITAMIN K 2.5MG PO X1 THEN REPEAR INR AT 5PM AND CALL HIM WITH RESULTS.
[2019-02-13 08:00] VITALS: BP 122/68
--- NOTE | 2019-02-13 10:00 | NUR ---
Ski Production Supervisor in to talk to patient. Patient states lives at home with his . There are 0 steps in the home. Physician: Dr. Jace Cadena [facility] services: none Patient's level of ADLs: minimal assistance Patient has working utilities: yes DME: walker Follow-up physician's appointment after d/c: he prefers to make his own follow up appt after discharge Does patient want to access PORTAL?: no Discharge plan discussed with patient. He lives at home with his . His is present at the bedside. He is independent in his ADLs and ambulates with a walker. Discussed home health care services and he denies any home needs at this time. When medically stable he will be discharged to home. His will provide transportation on discharge. GHANSHYAM ARECHIGA
[2019-02-13 12:00] VITALS: BP 116/57
[2019-02-13 16:00] VITALS: BP 96/67
[2019-02-13 17:29] LABS: INTERNATIONAL NORM RATIO 1.6 (2.0-3.5)
--- NOTE | 2019-02-13 17:54 | NUR ---
CALLED WITH INR RESULTS. NEW ORDER RECEVIED FOR SURGERY IN AM FOR PACEMAKER INSERTION AND RECHECK INR IN AM. PATIENT AND SOAP GRINDER NOTITIED OF NEW ORDERS.
[2019-02-13 20:00] VITALS: BP 121/51
[2019-02-14] VITALS (9 sets, daily range): BP systolic 112–148; BP diastolic 45–66
[2019-02-14 04:49] LABS: INTERNATIONAL NORM RATIO 1.2 (2.0-3.5)
--- NOTE | 2019-02-14 07:00 | NUR ---
PT DOWN AT SURGERY AT THIS TIME FOR REPORT. WILL ASSESS PT WHEN HE RETURNS TO FLOOR.
--- NOTE | 2019-02-14 09:00 | NUR ---
Washing Machine Loader in to see patient. He is currently not in his room. Will follow up at a later time.
--- NOTE | 2019-02-14 09:40 | NUR ---
REPORT RECEIVED FROM SURGERY ON PT.
--- NOTE | 2019-02-14 10:00 | NUR ---
PT RETURNS TO FLOOR AT THIS TIME, CALL MADE TO DR CANALES TO CONFIRM THAT ALL PRE OP ORDERS CAN BE CONTINUED AT THIS TIME.
--- NOTE | 2019-02-14 11:09 | NUR ---
PT ASSESSMENT COMPLETE. NO S/S OF DISTRESS. PT SITTING UP IN BED, HOB ELEVATED, EATING BREAKFAST. NO COMPLAINTS OF PAIN OR CHEST PAIN PER PT. FAMILY AT BEDSIDE. RESPIRATIONS EASY AND UNLABORED. CALL LIGHT IN REACH.
--- NOTE | 2019-02-14 11:39 | NUR ---
Nutritional Support Services Note: Appetite is good for meals, he is eating 100% of all meals served. He receives an 1800cal diet as ordered. Sutures to left orbit area. No other nutrition intervention noted. Pt normally eats a regular diet with no sweets. Will follow as needed. Zoe Cardona Rdn Ld
--- NOTE | 2019-02-14 12:00 | NUR ---
Digital Retoucher in to see patient. No new needs or request at this time. He denies any home needs. When medically stable he will be discharged to home. Per multidisciplinary discharge planning meeting patient is having a PMR placed today.
--- NOTE | 2019-02-14 19:40 | NUR ---
PT SITTING UP AT SIDE OF BED. RESP-EASY AND REGULAR. NO C/O AT THIS TIME. CALL LIGHT IN REACH. SEE SHIFT ASSESSMENT. SLING TO LEFT ARM NOTED. SEE SHIFT ASSESSMENT.
--- NOTE | 2019-02-14 22:00 | NUR ---
RESTING IN BED. NO C/O AT THIS TIME. CALL LIGHT IN REACH.
[2019-02-15] VITALS: BP 125/67
--- NOTE | 2019-02-15 00:15 | NUR ---
PT RESTING IN BED. RESP-EASY AND REGULAR. TEDS/SCD'S ON. NO C/O AT THIS TIME. CALL LIGHT IN REACH. SEE SHIFT ASSESSMENT.
--- NOTE | 2019-02-15 06:00 | NUR ---
[id number]-[id number], SEE EMAR. CALL LIGHT IN REACH.
[2019-02-15 06:28] LABS: BASO % 0.4 % (0.0-1.0); EOS # 0.1 10*3/uL (0.0-0.4); EOS % 0.9 % (1.0-4.0); HEMATOCRIT 35.1 % (42.0-52.0); HEMOGLOBIN 11.5 g/dl (14.0-18.0); LYMPH # 1.1 10*3/uL (1.3-4.4); LYMPH % 11.2 % (27.0-41.0); MEAN CELL VOLUME 95.4 fl (80.0-94.0); MEAN CORPUSCULAR HGB 31.3 pg (27.0-31.0); MEAN CORPUSCULAR HGB CONC 32.8 g/dl (33.0-37.0); MONO % 9.5 % (3.0-9.0); NEUT # 7.9 10*3/uL (2.3-7.9); NEUT % 77.3 % (47.0-73.0); PLATELET COUNT AUTOMATED 176 10*3/uL (130-400); RED BLOOD COUNT 3.68 10*6/uL (4.50-5.90); RED CELL DISTRI WIDTH 15.2 % (0-14.5); WHITE BLOOD COUNT 10.2 10*3/uL (4.8-10.8)
[2019-02-15 06:42] LABS: BUN 22 mg/dl (7-24); CHLORIDE 99 mmol/L (98-107); POTASSIUM 3.8 mmol/L (3.5-5.1); SODIUM 134 mmol/L (136-145)
[2019-02-15 06:43] LABS: CREATININE 1.11 mg/dL (0.70-1.30)
[2019-02-15 08:00] VITALS: BP 126/68
--- NOTE | 2019-02-15 11:23 | NUR ---
DR ALMARAZ IN TO SEE PT, ORDERS RECEIVED TO RESSTART COUMADIN PER HOME ORDERS.
[2019-02-15 12:00] VITALS: BP 124/53
[2019-02-15 16:00] VITALS: BP 119/57
[2019-02-15] MEDS ORDERED: CEFUROXIME AXE250 MG PO ×3 (16:18→16:24)
--- NOTE | 2019-02-15 16:38 | NUR ---
REFUSED D/C PHOTOS/WOUND CARE.
--- NOTE | 2019-02-15 17:10 | NUR ---
Discharge instructions reviewed with patient/family. Patient receptive and verbalizes understanding. Follow-up care arranged. Written instructions given to patient/family. XAVI CHIANG
== END 2019-02-15 17:10 | disposition home or self-care (01) | DRG 243 ==
LOC: 5E 07:57
PROVIDERS: Internal Medicine; Internal Medicine Cardiovascular Disease; ADMIT Internal Medicine
PROC: 5A09357 Assistance with Respiratory Ventilation, Less than 24 Consecutive Hours, Continuous Positive Airway Pressure (ICD-10-PCS; principal; 2019-02-13)
PROC: 5A09357 Assistance with Respiratory Ventilation, Less than 24 Consecutive Hours, Continuous Positive Airway Pressure (ICD-10-PCS; 2019-02-14)
PROC: 02H63JZ Insertion of Pacemaker Lead into Right Atrium, Percutaneous Approach (ICD-10-PCS; 2019-02-14)
PROC: 0JH606Z Insertion of Pacemaker, Dual Chamber into Chest Subcutaneous Tissue and Fascia, Open Approach (ICD-10-PCS; 2019-02-14)
PROC: 02HK3JZ Insertion of Pacemaker Lead into Right Ventricle, Percutaneous Approach (ICD-10-PCS; 2019-02-14)
PROC: 5A09357 Assistance with Respiratory Ventilation, Less than 24 Consecutive Hours, Continuous Positive Airway Pressure (ICD-10-PCS; 2019-02-15)
DX: I49.5 Sick sinus syndrome (principal); J44.1 Chronic obstructive pulmonary disease with (acute) exacerbation; I48.92 Unspecified atrial flutter; E13.9 Other specified diabetes mellitus without complications; D53.9 Nutritional anemia, unspecified; I48.0 Paroxysmal atrial fibrillation; R31.9 Hematuria, unspecified; E78.5 Hyperlipidemia, unspecified; R79.1 Abnormal coagulation profile; I10 Essential (primary) hypertension; Z82.3 Family history of stroke; Z80.9 Family history of malignant neoplasm, unspecified; Z82.0 Family history of epilepsy and other diseases of the nervous system; Z79.84 Long term (current) use of oral hypoglycemic drugs; Z79.899 Other long term (current) drug therapy

== ENCOUNTER → 2020-03-15 | Outpatient (CLI) | payer OTHER ==
[~2020-03-15] MED LIST changes: +CEFUROXIME AXE250 MG PO; +MULTIVITAMINS1 EAC6 PO; +VITAMIN B-125000 MC2 PO; +VITAMIN D31000 UNI1 PO
== END | disposition home or self-care (01) ==
LOC: US 14:21
PROVIDERS: ATTEND Internal Medicine
DX: E11.51 Type 2 diabetes mellitus with diabetic peripheral angiopathy without gangrene (principal); I10 Essential (primary) hypertension

== ENCOUNTER → 2021-12-13 | Outpatient (CLI) | payer OTHER | END | disposition home or self-care (01) | LOC: RESCLI 02:39 | PROVIDERS: ATTEND Internal Medicine | DX: I48.91 Unspecified atrial fibrillation (principal); E11.9 Type 2 diabetes mellitus without complications; I10 Essential (primary) hypertension; E55.9 Vitamin D deficiency, unspecified; E78.00 Pure hypercholesterolemia, unspecified; F32.A Depression, unspecified; Z79.899 Other long term (current) drug therapy; Z79.01 Long term (current) use of anticoagulants ==

== ENCOUNTER → 2022-02-28 | Outpatient (CLI) | payer OTHER ==
[2022-02-28 12:54] LABS: CHLORIDE 99 mmol/L (98-107); POTASSIUM 3.8 mmol/L (3.5-5.1); SODIUM 135 mmol/L (136-145)
[2022-02-28 12:57] LABS: BUN 23 mg/dl (7-24); CREATININE 1.33 mg/dL (0.70-1.30)
== END ==
LOC: LAB 11:00
PROVIDERS: ATTEND Internal Medicine
DX: U07.1 COVID-19 (principal)

== ENCOUNTER → 2022-12-18 | Outpatient (CLI) | payer OTHER | END | disposition home or self-care (01) | LOC: RESCLI 14:02 | PROVIDERS: ATTEND Internal Medicine | DX: I48.91 Unspecified atrial fibrillation (principal); E11.9 Type 2 diabetes mellitus without complications; I10 Essential (primary) hypertension; E63.9 Nutritional deficiency, unspecified; F32.9 Major depressive disorder, single episode, unspecified; E78.5 Hyperlipidemia, unspecified; Z82.49 Family history of ischemic heart disease and other diseases of the circulatory system; Z82.3 Family history of stroke ==

== ENCOUNTER → 2023-09-04 | Outpatient (CLI) | payer MEDICARE | LOC: RAD 14:23 | PROVIDERS: ATTEND Internal Medicine | DX: M17.0 Bilateral primary osteoarthritis of knee (principal) ==

== ENCOUNTER 2024-11-16 20:16 | Emergency (ER) | payer MEDICARE | END 2024-11-16 22:51 | disposition home or self-care (01) | LOC: ED 20:16 | DX: T74.11XA Adult physical abuse, confirmed, initial encounter (principal); S02.2XXA Fracture of nasal bones, initial encounter for closed fracture; S00.512A Abrasion of oral cavity, initial encounter; R68.84 Jaw pain; Z79.899 Other long term (current) drug therapy; Z87.442 Personal history of urinary calculi; Y04.2XXA Assault by strike against or bumped into by another person, initial encounter; Y93.89 Activity, other specified; Y92.89 Other specified places as the place of occurrence of the external cause; Y99.8 Other external cause status ==